=== PATIENT | female | born 1935 | race African-American/Black ===

== ENCOUNTER → 2016-10-18 | Outpatient (CLI) | payer MEDICARE, BC ==
[~2016-10-18] MED LIST: ATENOLOL100 MG ORAL; Aspirin ORAL; BRIMONIDINE TART5 ML BOTH EYES; COLCHICINE0.6 MG PO; DIOVAN160 MG ORAL; HYDRALAZINE HCL25 M1 ORAL; INDOMETHACIN75 MG PO; LATANOPROST2.5 ML BOTH EYES; LIPITOR40 MG ORAL; MEDROL DOSEPAK4 MG ORAL; NIFEDIPINE ER90 M3 ORAL; SPIRONOLACTONE25 MG ORAL; SYNTHROID25 MCG ORAL
--- NOTE | 2016-11-05 07:59 | Diagnostic Imaging Report ---
Indication: SCREEN Technique: Bilateral Craniocaudal and mediolateral oblique views were obtained. Comparison: Outside study from [facility] dated 12/27/13 Findings: Breasts are mostly fat. No parenchymal asymmetry nor architectural distortion. There are benign calcifications bilaterally. No dominant masses nor suspicious clustered microcalcifications. Benign-appearing nodes are seen in the upper outer quadrant bilaterally, unchanged. No skin thickening nor nipple retraction. No axillary adenopathy. No significant interim change. Impression: No mammographic evidence of malignancy. Routine annual rescreening recommended. BI-RADS category 2-benign. Breast density BI-RADS type A
== END | disposition home or self-care (01) ==
LOC: MAMMO 09:22
DX: Z12.31 Encounter for screening mammogram for malignant neoplasm of breast (principal)
CPT/HCPCS: 77067